=== PATIENT | male | born 1950 | race Caucasian/White ===

== ENCOUNTER 2021-06-13 16:23 | Emergency (ER) | payer MEDICARE ==
[2021-06-13] MEDS ORDERED: CEPHALEXIN500 MG PO (19:51)
[2021-06-13] MEDS ORDERED: LODINE CAP 300300 MG PO (19:53)
[2021-06-13] MEDS ORDERED: ZOFRAN ODT 4 MG4 MG PO (19:53)
== END 2021-06-13 20:47 | disposition home or self-care (01) ==
LOC: ER1 16:23
DX: S62.36 Nondisplaced fracture of neck of other metacarpal bone (principal); S61.411A Laceration without foreign body of right hand, initial encounter; Z88.0 Allergy status to penicillin; Z23 Encounter for immunization; Z20.822 Contact with and (suspected) exposure to COVID-19; W20.8XXA Other cause of strike by thrown, projected or falling object, initial encounter; Y92.009 Unspecified place in unspecified non-institutional (private) residence as the place of occurrence of the external cause
CPT/HCPCS: 12001; 29125; 73130; 90471; 90715; 96372; 99283; J0690; U0002